=== PATIENT | female | born 1980 | race African-American/Black ===

== ENCOUNTER 2024-01-12 16:02 | Emergency (ER) | payer OTHER ==
[2024-01-12 16:37] VITALS: PULSE 79; RESP 12; O2SAT 92
[2024-01-12] MEDS: ASPirin 325 MG TAB PO ONE (16:45)
[2024-01-12] MEDS: MORPHINE SULFATE 4 MG/ML SYR/VIAL IV ONE ×2 (16:45→22:38)
[2024-01-12] MEDS: ONDANSETRON HCL 4 MG/2 ML VIAL IV ONE ×2 (16:45→22:38)
[2024-01-12] MEDS: NITROGLYCERIN 0.4 MG SL TAB SL ONE (16:45)
[2024-01-12 16:52] LABS: Basophils # (auto) 0 10 ^3/uL (0-0.2); Basophils % (auto) 0.1 % (0.0-2.0); Nucleated Red Blood Cells % 0.1 %
[2024-01-12 16:54] LABS: Eosinophils # (auto) 0 10 ^3/uL (0-0.8); Eosinophils % (auto) 0.4 % (0.0-7.0); Hematocrit 34.8 % (36.0-46.0); Hemoglobin 11.8 g/dL (12.2-16.2); Lymphocytes # (auto) 1.2 10 ^3/uL (0.4-5.4); Lymphocytes % (auto) 11.1 % (10.0-50.0); Mean Corpuscular Hemoglobin 27.6 pg (28.0-32.0); Mean Corpuscular Hgb Conc. 33.8 g/dL (32.0-36.0); Mean Corpuscular Volume 81.4 fL (80.0-100.0); Monocytes # (auto) 0.5 10 ^3/uL (0-1.3); Monocytes % (auto) 5.2 % (0.0-12.0); Neutrophils # (auto) 8.7 10 ^3/uL (1.6-8.6); Neutrophils % (auto) 83.2 % (37.0-80.0); Platelet Count (auto) 361 10^3/uL (140-450); Red Blood Cells 4.27 10^6/uL (4.0-5.20); Red Cell Distribution Width 14.9 % (11.8-14.3); White Blood Cell 10.4 10^3/uL (4.4-10.8)
[2024-01-12 17:00] LABS: Alanine Aminotransferase 22 U/L (7-40); Albumin 4.5 g/dL (3.2-4.8); Alkaline Phosphatase 87 U/L (46-116); Anion Gap 5 (5-15); Aspartate Aminotransferase 18 U/L (13-40); BUN/Creatinine Ratio 9.6 (10.0-20.0); Blood Urea Nitrogen 9 mg/dL (9-23); Carbon Dioxide 31 mmol/L (20-31); Chloride 101 mmol/L (98-107); Glucose 185 mg/dL (74-106); Magnesium 1.7 mg/dL (1.6-2.6); Potassium 3.3 mmol/L (3.5-5.1); Sodium 137 mmol/L (136-145)
[2024-01-12 17:01] LABS: Bilirubin, Total 0.4 mg/dL (0.2-1.0); Total Protein 7.7 g/dL (5.7-8.2)
[2024-01-12 17:09] LABS: INR 1.04 (0.9-1.15); Partial Thromboplastin Time 27.1 SEC (24.5-34.5)
[2024-01-12] MEDS: cefTRIAXone 1GM/50ML D5W 50 ML IV ONE (17:44)
[2024-01-12] MEDS: POTASSIUM EFFERVESENT TAB 25 MEQ PO ONE (17:45)
[2024-01-12 19:27] VITALS: PULSE 83; RESP 19; O2SAT 94
[2024-01-13 00:08] VITALS: BP 150/71; PULSE 81; RESP 21; TEMP 100.2; O2SAT 94
== END 2024-01-14 00:25 | disposition short-term general hospital (02) ==
LOC: EDBD 16:02 → ER 16:02
DX: J40 Bronchitis, not specified as acute or chronic (principal); R07.89 Other chest pain; R06.02 Shortness of breath; E11.65 Type 2 diabetes mellitus with hyperglycemia; Z88.8 Allergy status to other drugs, medicaments and biological substances
CPT/HCPCS: 36415; 71045; 80053; 83735; 83880; 84484; 85025; 85610; 85730; 96365; 96375; 99285; J0696; J2270; J2405; 93005